=== PATIENT | female | born 2000 | race Asian ===

== ENCOUNTER 2020-09-15 14:52 | Outpatient (CLI) | payer OTHER ==
--- NOTE | 2020-09-15 23:43 | Ultrasound Report ---
PROCEDURE: Pelvic w/Transvaginal INDICATIONS: AMENORRHEA TECHNIQUE: Real-time scanning was performed of the pelvic organs, with image documentation. Additional endovagi nal scanning was necessary due to incomplete visualization of the adnexal and endometrial structures by transabdominal scanning. COMPARISON: None. FINDINGS: No pathologic free abdominal or pelvic fluid. Uterus: Uterus is normal in size at 6.0 x 3.0 x 3.9 cm. The endometrium measures 6.8 mm in combined thickness. Ovaries: Right ovary: 4.1 x 2.0 x 2.8 centimeters. Greater than 12 follicles are present. Left ovary: 3.7 x 1.8 x 2.7 cm. Greater than 12 follicles are present. IMPRESSION: Numerous bilateral small ovarian follicles may support the clinical diagnosis of polycystic ovary syn drome. Reviewed by: Vignesh Ng MD on 09/15/2020 10:41 PM [facility] Approved by: Vignesh Ng MD on 09/15/2020 10:41 PM [facility] Station ID: [id number]
== END 2020-09-15 14:53 | disposition home or self-care (01) ==
LOC: DI 14:52
PROVIDERS: ATTEND Physician Assistant
DX: N91.0 Primary amenorrhea (principal)

== ENCOUNTER 2021-07-19 08:00 | Outpatient (CLI) | payer OTHER | END 2021-07-20 10:55 | disposition home or self-care (01) | LOC: LAB.N 08:00 | PROVIDERS: ATTEND Family Medicine | DX: U07.1 COVID-19 (principal) ==

== ENCOUNTER 2023-01-03 10:33 | Outpatient (CLI) | payer OTHER | END 2023-01-03 10:34 | disposition home or self-care (01) | LOC: LAB 10:33 | PROVIDERS: ATTEND Registered Nurse Diabetes Educator | DX: Z11.1 Encounter for screening for respiratory tuberculosis (principal) | CPT/HCPCS: 81599; 86480 ==